=== PATIENT | male | born 1960 | race Two or more races ===

== ENCOUNTER 2023-09-01 23:26 | Emergency (ER) | payer OTHER ==
[~2023-09-01] VITALS: Ht 157.5 cm; Wt 72.7 kg
[2023-09-01 23:49] LABS: Basophils # (auto) 0 10 ^3/uL (0-0.2); Basophils % (auto) 0.4 % (0.0-2.0); Eosinophils # (auto) 0.1 10 ^3/uL (0-0.8); Eosinophils % (auto) 2.1 % (0.0-7.0); Hematocrit 46.4 % (41.0-53.0); Hemoglobin 15.9 g/dL (13.5-17.5); Lymphocytes # (auto) 1.5 10 ^3/uL (0.4-5.4); Lymphocytes % (auto) 21.7 % (10.0-50.0); Mean Corpuscular Hemoglobin 31.6 pg (28.0-32.0); Mean Corpuscular Hgb Conc. 34.3 g/dL (32.0-36.0); Mean Corpuscular Volume 92.2 fL (80.0-100.0); Monocytes # (auto) 0.7 10 ^3/uL (0-1.3); Monocytes % (auto) 9.8 % (0.0-12.0); Neutrophils # (auto) 4.5 10 ^3/uL (1.6-8.6); Red Blood Cells 5.04 10^6/uL (4.5-5.90); Red Cell Distribution Width 13.3 % (11.8-14.3); White Blood Cell 6.8 10^3/uL (4.4-10.8)
[2023-09-02 00:07] LABS: Alanine Aminotransferase 27 U/L (7-40); Albumin 4.3 g/dL (3.2-4.8); Alkaline Phosphatase 137 U/L (46-116); Anion Gap 9 (5-15); Aspartate Aminotransferase 25 U/L (13-40); BUN/Creatinine Ratio 18.5 (10.0-20.0); Bilirubin, Total 1.3 mg/dL (0.2-1.0); Blood Urea Nitrogen 17 mg/dL (9-23); Calcium 9.3 mg/dL (8.7-10.4); Carbon Dioxide 27 mmol/L (20-30); Chloride 104 mmol/L (98-107); Glucose 182 mg/dL (74-106); Potassium 3.9 mmol/L (3.5-5.1); Sodium 140 mmol/L (136-145); Total Protein 6.6 g/dL (5.7-8.2)
[2023-09-02] MEDS: ASPirin 81 mg TAB PO ONE (00:15)
[2023-09-02 07:34] VITALS: BP 154/80; PULSE 64; RESP 16; TEMP 97; O2SAT 100
== END 2023-09-02 06:54 | disposition short-term general hospital (02) ==
LOC: ER 23:26
DX: I24.9 Acute ischemic heart disease, unspecified (principal); E11.9 Type 2 diabetes mellitus without complications; E78.5 Hyperlipidemia, unspecified; I10 Essential (primary) hypertension; Z95.1 Presence of aortocoronary bypass graft
CPT/HCPCS: 36415; 71045; 80053; 83880; 84484; 85025; 93005